=== PATIENT | female | born 1975 | race Two or more races ===

== ENCOUNTER 2018-01-09 08:16 | Day surgery (SDC) | payer MEDICAID ==
[~2018-01-09] VITALS: Ht 162.6 cm; Wt 97.1 kg
[2018-01-09 09:20] LABS: BASOPHILS % 0.4 % (0.0-2.0); EOSINOPHILS % 1.5 % (0.0-5.0); HEMATOCRIT. 39.3 % (36.0-48.0); HEMOGLOBIN. 12.8 g/dL (12.0-16.0); LYMPHOCYTES % 23.5 % (20.0-50.0); MEAN CORPUSCULAR HEMOGLOBIN 28.1 pg (28.0-32.0); MEAN CORPUSCULAR VOLUME 86.3 fL (81.0-99.0); MEAN PLATELET VOLUME 8.8 fl (7.4-10.4); MONOCYTES % 7.1 % (2.0-8.0); NEUTROPHILS % 67.5 % (40.0-76.0); PLATELET 195 x1000/uL (130-400); RED BLOOD CELL COUNT 4.55 mill/uL (4.2-5.4); RED CELL DISTRIBUTION WIDTH 14.6 % (11.6-14.6)
[2018-01-09 09:26] LABS: CHLORIDE 108 mEq/L (98-107)
[2018-01-09] MEDS ORDERED: MONT10TA24 PO (09:41)
[2018-01-09] MEDS ORDERED: METF-416 PO (09:41)
[2018-01-09] MEDS ORDERED: ALBU90AE IH (09:41)
[2018-01-09] MEDS ORDERED: OMEP20CA10 PO (09:41)
[2018-01-09] MEDS ORDERED: GLIM4TAB2 PO (09:41)
[2018-01-09] MEDS ORDERED: FLUT1AER4 IH (09:41)
[2018-01-09] MEDS ORDERED: IOHEXOL-300 100 ML BOTTLE ONE (10:08)
[2018-01-09] MEDS ORDERED: FENTANYL CITRATE/PF 50MCG/ML 2ML VIAL ONE (10:09)
[2018-01-09] MEDS ORDERED: LIDOCAINE HCL 1% 20ML VIAL (Pyxis) INJ ONE (10:09)
[2018-01-09] MEDS ORDERED: MIDAZOLAM HCL 2 MG/2 ML VIAL ONE (10:09)
[2018-01-09 10:35] LABS: HCG SCREEN NEGATIVE
[2018-01-09] MEDS ORDERED: ONDANSETRON HCL 4MG/2ML INJ IV PRN (11:30)
[2018-01-09] MEDS ORDERED: ACETAMINOPHEN 325MG TABLET PO PRN (11:30)
[2018-01-09] MEDS ORDERED: HEPARIN SODIUM 1,000 UNIT/1ML VIAL IV ONE (11:40)
[2018-01-09] MEDS ORDERED: NICARDIPINE 100MCG/ML 10ML VIAL (CATH LAB) IV ONE (11:40)
[2018-01-09] MEDS ORDERED: NITROGLYCERIN 50MCG/ML 10ML VIAL (CATH LAB) IV ONE (11:40)
[2018-01-09] MEDS: MORPHINE SULFATE 4 MG/ML CPJ (NOT FOR IM USE) IV PRN ×2 (12:37→12:45)
[2018-01-09 12:45] VITALS: BP 103/58
== END 2018-01-09 13:30 | disposition home or self-care (01) ==
LOC: CCL 08:16
PROVIDERS: ATTEND Internal Medicine Cardiovascular Disease
DX: R07.9 Chest pain, unspecified (principal); E11.9 Type 2 diabetes mellitus without complications; J45.909 Unspecified asthma, uncomplicated; Z79.899 Other long term (current) drug therapy; Z80.0 Family history of malignant neoplasm of digestive organs; Z98.890 Other specified postprocedural states
CPT/HCPCS: 36415; 80048; 82962; 84703; 85025; 85610; 85730; 93005; 93458; C1887; J1644; J2250; J2270; J2405; J3010; J3490; Q9967; C1769; C1893